=== PATIENT | male | born 1995 ===

== ENCOUNTER 2020-01-18 21:08 | Emergency (ER) | payer SELFPAY ==
[2020-01-19] MEDS ORDERED: ACETAMINOPHEN 500 MG TAB PO ONE (01:11)
--- NOTE | 2020-01-19 02:09 | XRay Report ---
CHEST 1 VIEW INDICATION: cough. COMPARISON: None. FINDINGS: Support devices: None. Heart: Normal. Lungs/Pleura: No acute pulmonary or pleural findings. IMPRESSION: 1. No acute findings. Signer Name: Luis Freedman MD Signed: 01/19/2020 2:04 AM Workstation Name: [id number]
[2020-01-19] MEDS ORDERED: SODIUM CHLORIDE 0.9% 1000 ML 1,000 ML IV ONE (04:16)
[2020-01-19] MEDS ORDERED: IBUPROFEN 600 MG TAB PO ONE (04:16)
[2020-01-19] MEDS ORDERED: ACETAMINOPHEN 500 MG TAB ONE (04:23)
[2020-01-19 04:59] LABS: Hematocrit 44.1 % (35.5-45.6); Hemoglobin 15.5 gm/dl (11.8-15.2); Mean Corpuscular HGB Conc 35 % (32-34); Mean Corpuscular Volume 87 fl (84-94); Platelet Count 133 K/mm3 (140-440); Red Blood Count 5.07 M/mm3 (3.65-5.03); Red Cell Distribution Width 12.7 % (13.2-15.2)
[2020-01-19 05:00] LABS: Basophils % (Auto) 0.2 % (0.0-1.8); Lymphocytes # (Auto) 0.7 K/mm3 (1.2-5.4); Monocytes # (Auto) 1.3 K/mm3 (0.0-0.8); Monocytes % (Auto) 9.1 % (0.0-7.3)
[2020-01-19 05:47] LABS: Alanine Aminotransferase 17 units/L (7-56); Albumin 4.4 g/dL (3.9-5); BUN/Creatinine Ratio 9; Blood Urea Nitrogen 9 mg/dL (9-20); Calcium 9.2 mg/dL (8.4-10.2); Hemolysis Index 13
[2020-01-19 06:10] VITALS: BP 142/83
--- NOTE | 2020-01-19 06:40 | Emergency Department Report ---
- General Chief Complaint: Upper Respiratory Infection Stated Complaint: FLU LIKE SYMPTOMS X'S 2 DAYS Source: patient Mode of arrival: Ambulatory Limitations: No Limitations - History of Present Illness Initial Comments: Patient is a 24-year-old male with no past medical history presents to the ED with complaint of acute onset persistent nasal and sinus congestion, frontal sinus pressure and headache, sore throat, diffuse body aches and pains, persistent dry cough low back pain for the last 2 days. Patient also complains of persistent chills and subjective fever for the last 12 hours. Patient states that he has been taking [id number] medication with no relief. Patient states that no one else at home or at work is had similar symptoms. Patient denies dizziness, syncope, nausea, vomiting, chest pain, shortness of breath, abdominal pain, dysuria, urinary frequency and urgency, penile discharge, seizures, change in vision or neck pain. MD Complaint: fever, cough, sore throat, rhinorrhea, nasal congestion, sinus pain, other (Diffuse body aches and pains) -: Sudden, days(s) (2) Severity: severe Severity scale (0 -10): 7 Quality: sharp, aching Consistency: constant Improves With: nothing Worsens With: nothing Associated Symptoms: denies other symptoms, fever, chills, myalgias, headache, rhinorrhea, nasal congestion, sore throat, cough. denies: stiff neck, chest pain, shortness of breath, abdominal pain, nausea, vomiting, diarrhea, rash, confusion, right sweats, weight loss, epistaxis, hoarseness, other Treatments Prior to Arrival: none - Related Data Previous Rx's Medication Instructions Recorded Last Taken Type Azithromycin [Zithromax Z-RANDY] 250 mg PO DAILY #6 tablet 01/19/20 Unknown Rx Benzonatate [Tessalon Perles] 100 mg PO Q8HR #30 capsule 01/19/20 Unknown Rx Cetirizine HCl [Zyrtec 10mg tab] 10 mg PO DAILY #30 tablet 01/19/20 Unknown Rx Ibuprofen [Motrin] 600 mg PO Q8H PRN #30 tablet 01/19/20 Unknown Rx methylPREDNISolone [Medrol 4MG 4 mg PO DAILY #21 tab.ds.pk 01/19/20 Unknown Rx DOSEPAK (21 tabs)] Allergies Allergy/AdvReac Type Severity Reaction Status Date / Time No Known Allergies Allergy Unverified 01/19/20 04:31 ED Review of Systems ROS: Stated complaint: FLU LIKE SYMPTOMS X'S 2 DAYS Other details as noted in HPI Constitutional: see HPI, fever, malaise Eyes: denies: eye pain, eye discharge, vision change ENT: throat pain, congestion, other (Nasal and sinus congestion with pressure an d headache) Respiratory: cough Cardiovascular: denies: chest pain, palpitations Endocrine: no symptoms reported Gastrointestinal: denies: abdominal pain, nausea, vomiting, diarrhea Genitourinary: denies: urgency, dysuria Musculoskeletal: back pain, arthralgia, myalgia. denies: joint swelling Skin: denies: rash, lesions Neurological: headache. denies: weakness, paresthesias Psychiatric: denies: anxiety, depression Hematological/Lymphatic: denies: easy bleeding, easy bruising ED Past Medical Hx - Past Medical History Previous Medical History?: No - Surgical History Past Surgical History?: No - Social History Smoking Status: Never Smoker Substance Use Type: None - Medications Home Medications: Home Medications Medication Instructions Recorded Confirmed Last Taken Type Azithromycin [Zithromax Z-RANDY] 250 mg PO DAILY #6 tablet 01/19/20 Unknown Rx Benzonatate [Tessalon Perles] 100 mg PO Q8HR #30 capsule 01/19/20 Unknown Rx Cetirizine HCl [Zyrtec 10mg tab] 10 mg PO DAILY #30 tablet 01/19/20 Unknown Rx Ibuprofen [Motrin] 600 mg PO Q8H PRN #30 tablet 01/19/20 Unknown Rx methylPREDNISolone [Medrol 4MG 4 mg PO DAILY #21 tab.ds.pk 01/19/20 Unknown Rx DOSEPAK (21 tabs)] ED Physical Exam - General Limitations: No Limitations General appearance: alert, in no apparent distress - Head Head exam: Present: atraumatic, normocephalic, normal inspection - Eye Eye exam: Present: normal appearance, PERRL, EOMI Pupils: Present: normal accommodation - ENT ENT exam: Present: mucous membranes moist, TM's normal bilaterally, normal external ear exam, other (Grossly congested nasal passages; palpable frontal and maxillary sinus tenderness; erythematous oropharynx) - Neck Neck exam: Present: normal inspection - Respiratory Respiratory exam: Present: normal lung sounds bilaterally. Absent: respiratory distress, wheezes, rales, rhonchi, chest wall tenderness, accessory muscle use, decreased breath sounds, prolonged expiratory - Cardiovascular Cardiovascular Exam: Present: normal rhythm, tachycardia, normal heart sounds. Absent: systolic murmur, diastolic murmur, rubs, gallop - GI/Abdominal GI/Abdominal exam: Present: soft, normal bowel sounds. Absent: tenderness, guarding, rebound, hyperactive bowel sounds, hypoactive bowel sounds, organomegaly - Extremities Exam Extremities exam: Present: normal inspection, full ROM, normal capillary refill - Back Exam Back exam: Present: normal inspection, full ROM. Absent: tenderness, CVA tenderness (R), CVA tenderness (L), muscle spasm, paraspinal tenderness, vertebral tenderness - Neurological Exam Neurological exam: Present: alert, oriented X3, CN II-XII intact, normal gait, reflexes normal - Psychiatric Psychiatric exam: Present: normal affect, normal mood - Skin Skin exam: Present: warm, dry, intact, normal color. Absent: rash ED Course Vital Signs 01/18/20 01/19/20 01/19/20 22:49 04:31 04:32 Temperature 101.3 F H Pulse Rate 107 H Respiratory 18 20 20 Rate Blood Pressure 153/81 O2 Sat by Pulse 92 Oximetry 01/19/20 05:02 Temperature 101.6 F H Pulse Rate 98 H Respiratory 18 Rate Blood Pressure 142/83 O2 Sat by Pulse 96 Oximetry ED Medical Decision Making - Lab Data Result diagrams: 01/19/20 04:33 01/19/20 04:33 - Radiology Data Radiology results: report reviewed, image reviewed Findings [facility] [address] [place] [address] XRay Report Signed Patient: ROLANDA ALDRICH MR#: [id number] : 1995 Acct:[id number] Age/Sex: 24 / M ADM Date: 01/18/20 Loc: ED Attending Dr: Ordering Physician: RUPERTO VIERA Date of Service: 01/19/20 Procedure(s): XR chest 1V ap Accession Number(s): [id number] cc: RUPERTO VIERA Fluoro Time In Minutes: CHEST 1 VIEW INDICATION: cough. COMPARISON: None. FINDINGS: Support devices: None. Heart: Normal. Lungs/Pleura: No acute pulmonary or pleural findings. IMPRESSION: 1. No acute findings. Signer Name: Luis Freedman MD Signed: 01/19/2020 2:04 AM Workstation Name: [id number] Transcribed By: ROLA Dictated By: Luis Freedman MD Electronically Authenticated By: Luis Freedman MD Signed Date/Time: 01/19/20203 DD/ 3 TD/TT: - Medical Decision Making This is a 24-year-old male with no past medical history presents to the ED with complaint of acute onset persistent nasal and sinus congestion, frontal sinus pressure and headache, sore throat, diffuse body aches and pains, persistent dry cough low back pain for the last 2 days. Patient also complains of persistent chills and subjective fever for the last 12 hours. Patient states that he has been taking [id number] medication with no relief. Patient states that no one else at home or at work is had similar symptoms. In the ED, patient is alert and oriented x3 and is not in distress but tachycardic and febrile in triage. Patient was treated for pain and for fever in the ED. patient also received normal saline 1 L IV bolus x1. Chest x-ray shows no acute cardiopulmonary abnormalities or pneumonitis. Rapid influenza and rapid strep test was negative. Other lab test results showed acute leukocytosis of 14,500 but all other tests results were nonactionable. On reevaluation, patient's fever and tachycardia resolved with medications. Patient felt better and was discharged home on medications. Patient was advised return to the ED immediately if symptoms get worse, otherwise follow-up with his primary care physician in 5 to 7 days for reevaluation. - Differential Diagnosis Sinusitis; strep pharyngitis; URI; pneumonia; bronchitis; COVID-19; flu Critical care attestation.: If time is entered above; I have spent that time in minutes in the direct care of this critically ill patient, excluding procedure time. ED Disposition Clinical Impression: Acute non-recurrent frontal sinusitis, Acute upper respiratory infection, Fever and chills Acute pharyngitis Qualifiers: Pharyngitis/tonsillitis etiology: unspecified etiology Qualified Code(s): J02.9 - Acute pharyngitis, unspecified Acute bronchitis Qualifiers: Bronchitis organism: unspecified organism Qualified Code(s): J20.9 - Acute bronchitis, unspecified Disposition: DC-01 TO HOME OR SELFCARE Is pt being admited?: No Does the pt Need Aspirin: No Condition: Stable Instructions: Pharyngitis (ED), Fever in Adults (ED), Upper Respiratory Infection (ED), Acute Bronchitis (ED), Acute Bacterial Rhinosinusitis (ED) Additional Instructions: Chest x-ray shows no acute cardiopulmonary abnormalities or pneumonitis. Take medication with food, drink plenty of fluids and follow-up with your primary care physician in 5 to 7 days for reevaluation. Return to the ED immediately if symptoms get worse. Prescriptions: methylPREDNISolone [Medrol 4MG DOSEPAK (21 tabs)] 4 mg PO DAILY #21 tab.ds.pk Ibuprofen [Motrin] 600 mg PO Q8H PRN #30 tablet PRN Reason: Pain Benzonatate [Tessalon Perles] 100 mg PO Q8HR #30 capsule Azithromycin [Zithromax Z-RANDY] 250 mg PO DAILY #6 tablet Cetirizine HCl [Zyrtec 10mg tab] 10 mg PO DAILY #30 tablet Referrals: [facility] [Provider Group] - 7-10 days Forms: Work/School Release Form(ED) Time of Disposition: 06:44 Print Language: CZECH
== END 2020-01-19 07:30 | disposition home or self-care (01) ==
LOC: ED 21:08
DX: J20.9 Acute bronchitis, unspecified (principal); J02.9 Acute pharyngitis, unspecified; J06.9 Acute upper respiratory infection, unspecified
CPT/HCPCS: 36415; 71045; 80053; 85025; 87116; 87400; 87430; 96360; 96361; 99284; J7030